=== PATIENT | female | born 1955 | race Caucasian/White ===

== ENCOUNTER 2017-03-30 15:28 | Observation (INO) | payer MEDICARE ==
[~2017-03-30] VITALS: Ht 157.5 cm; Wt 64.4 kg
[~2017-03-30 15:28] MED LIST: KLONOPIN0.5 MG PO; PAXIL20 MG PO
[2017-03-30 15:53] VITALS: BP 133/63
[2017-03-30] MEDS ORDERED: ONDANSETRON HCL INJ 2 MG/ML VIAL IV PRN (16:00)
[2017-03-30] MEDS ORDERED: SODIUM CHLORIDE 0.9% 1000ML 1,000 ML IV ONE (16:00)
[2017-03-30] MEDS ORDERED: METRONIDAZOLE 500MG/NS 100ML 100 ML IV SCH (18:00)
[2017-03-30 20:00] VITALS: BP 116/63
[2017-03-30] MEDS ORDERED: SODIUM CHLORIDE 0.9% 1000ML 1,000 ML ONE (20:16)
[2017-03-30] MEDS: METRONIDAZOLE 500MG/NS 100ML 100 ML IV SCH (20:32)
[2017-03-30] MEDS ORDERED: AMBIEN10 MG PO (20:34)
[2017-03-30] MEDS ORDERED: KLONOPIN1 MG PO (20:35)
[2017-03-30] MEDS ORDERED: PAXIL10 MG PO (20:40)
[2017-03-30] MEDS ORDERED: CLONAZEPAM 1 MG TAB PO PRN (20:45)
[2017-03-30] MEDS ORDERED: ZOLPIDEM TARTRATE 10 MG TAB PO SCH (21:00)
[2017-03-31] VITALS: BP 117/58
[2017-03-31] MEDS: METRONIDAZOLE 500MG/NS 100ML 100 ML IV SCH ×3 (03:04→16:33)
[2017-03-31 04:00] VITALS: BP 98/58
[2017-03-31 06:36] LABS: BASOPHILS # (AUTO) 0.1 (0.0-0.1); BASOPHILS % 0.8 % (0.0-1.0); EOSINOPHILS # (AUTO) 0.3 (0.0-0.4); EOSINOPHILS % 2.8 % (0.0-6.0); HEMATOCRIT 38.1 % (34.2-44.1); HEMOGLOBIN 13.5 g/dL (12.0-16.0); LYMPHOCYTES # (AUTO) 4.7 (1.0-3.2); LYMPHOCYTES % 43.9 % (18.0-39.1); MEAN CORPUSCULAR HEMOGLOBIN 33.3 pg (28-32); MEAN CORPUSCULAR HGB CONC 35.4 g/dL (31-35); MEAN CORPUSCULAR VOLUME 94.1 fL (81-99); MONOCYTES # (AUTO) 0.8 (0.2-0.8); MONOCYTES % 7.3 % (4.4-11.3); NEUTROPHILS # (AUTO) 4.8 (2.1-6.9); NEUTROPHILS % 44.8 % (38.7-80.0); PLATELET COUNT 248 x10e3/uL (140-360); RED BLOOD COUNT 4.05 x10e6/uL (3.6-5.1); RED CELL DISTRIBUTION WIDTH 14.3 % (11.7-14.4)
[2017-03-31 06:59] LABS: ANION GAP 13.2 mmol/L (8-16); BLOOD UREA NITROGEN 9 mg/dL (7-26); BUN/CREATININE RATIO 10 (6-25); CARBON DIOXIDE 24 mmol/L (22-29); CHLORIDE 106 mmol/L (98-107); CREATININE, SERUM 0.88 mg/dL (0.57-1.11); EST GLOMERULAR FILTRATION RATE > 60 ML/MIN (60-); GLUCOSE 110 mg/dL (74-118); POTASSIUM 3.2 mmol/L (3.5-5.1); SODIUM 140 mmol/L (136-145)
[2017-03-31] MEDS ORDERED: PANTOPRAZOLE SOD 40 MG TABEC PO SCH (07:30)
[2017-03-31 08:00] VITALS: BP 110/63
[2017-03-31 08:25] VITALS: BP 110/63
[2017-03-31] MEDS ORDERED: PAROXETINE HCL 20 MG TAB PO SCH ×2 (09:00)
[2017-03-31 10:55] LABS: BILIRUBIN,URINE NEGATIVE (NEGATIVE); KETONES,URINE NEGATIVE (NEGATIVE); LEUKOCYTE ESTERASE ,URINE 1+ (NEGATIVE); PROTEIN,URINE DIPSTICK NEGATIVE (NEGATIVE); URINE UROBILINOGEN 0.2 mg/dL (0.2 - 1)
[2017-03-31 10:56] LABS: NITRITE,URINE POSITIVE (NEGATIVE)
[2017-03-31 10:57] LABS: CLARITY,URINE CLOUDY (CLEAR); COLOR,URINE YELLOW (YELLOW)
--- NOTE | 2017-03-31 11:26 | History and Physical ---
A 62-year-old female comes in with gastroenteritis and dehydration. HISTORY OF PRESENT ILLNESS: This is Ms. Dianelys Aguilar who is a 62-year-old lady with a history of smoking and anxiety. Was in her usual state of health until about 1 month prior to admission. Patient started coughing and also had upper respiratory symptoms a day or 2 prior to admission. Every cough came with nausea. The patient started throwing up bilious product, and came into the office and saw her primary care physician. Was diagnosed with dehydration. The patient was sent over here for fluid resuscitation. PAST MEDICAL HISTORY: History of anxiety, history of insomnia and history of smoking as mentioned above. MEDICINES: She takes at home are: 1. Clonazepam 1 mg b.i.d. p.r.n. 2. Paroxetine 10 mg. 3. Zolpidem 10 mg. SURGICAL HISTORY: History of hysterectomy and appendectomy, and also bilateral knee surgery for trauma. SOCIAL HISTORY: Positive for smoking. She has been smoking for a long time. No ETOH. No IV drug abuse. FAMILY HISTORY: Noncontributory. REVIEW OF SYSTEMS: Negative for chest pain. Positive for shortness of breath. Positive for nausea and vomiting. No diarrhea. No constipation. No rectal bleeding, hematochezia. No hematemesis. No diplopia. No blurry vision. No headaches. No paresthesia. PHYSICAL EXAMINATION GENERAL: The patient is alert and oriented times 3 and in good spirits. Has been given 125 mL of fluid over the last 24 hours. VITALS: 98.1, pulse 79, respiratory rate 18, blood pressure 98/58. HEENT: Normocephalic and atraumatic. Pupils are reactive. NECK: No claudication. CV: S1 and S2 normal. Regular rate and rhythm. ABDOMEN: Nontender and nondistended. EXTREMITIES: No clubbing. No cyanosis. No edema. SKIN: Turgor is normal at this time, but on admission the patient had apparently had poor skin turgor. LABORATORY VALUES: Chemistry pending. White count is 10.61, hemoglobin is 13.5, hematocrit 38.1. No other labs were done. Will go ahead and order UA. Will go ahead and order also a chest x-ray. The patient is on Flagyl at this time. Also, start the patient on Protonix for intractable nausea. Continue the Zofran. Further recommendations per clinical course. Will continue to monitor the patient and awaiting lab work. Job#: [id number] RICKI
[2017-03-31 12:00] VITALS: BP 110/58
[2017-03-31 12:15] LABS: BACTERIA,URINE MODERATE /HPF; EPITHELIAL CELLS,URINE FEW /LPF
--- NOTE | 2017-03-31 13:56 | Diagnostic Imaging Report ---
PROCEDURE: X-RAY CHEST, TWO VIEWS COMPARISON: 01/02/2014. INDICATIONS: COUGH, VOMINTING FINDINGS: Lungs are well-inflated. No focal consolidation, pleural effusion, or pneumothorax. Stable cardiomediastinal contour. No pulmonary edema. No acute osseous abnormalities. Multiple healed right-sided rib fracture deformities, unchanged. Left sided breast implant. CONCLUSION: No acute cardiopulmonary abnormality. Dictated by: Fuad Norris M.D. on 03/31/2017 at 13:56 Electronically approved by: Fuad Norris M.D. on 03/31/2017 at 13:56
[2017-03-31] MEDS ORDERED: CIPRO500 MG PO (19:44)
[2017-03-31] MEDS ORDERED: PANTOPRAZOLE SO40 MG PO (19:45)
--- OUTSIDE RECORDS SUMMARY | 2017-04-28 15:54 | XMS REPORT ---
[facility] Address Unknown Phone Unavailable Care Team Providers Care Field Crop Grower Name Role Phone BONNIE ACEVEDO Unavailable Unavailable Problems This patient has no known problems. Allergies, Adverse Reactions, Alerts This patient has no known allergies or adverse reactions. Medications This patient has no known medications. Results Test Description Test Time Test Comments Text Results Atomic Results Result Comments CHEST 2 VIEWS [place] [address] Patient Name: PAUL NOGUERA MR #: [id number] : 1955 Age/Sex: 62/F Req # : [id number] Adm Physician: BONNIE ACEVEDO MD Ordered by: BONNIE ACEVEDO MD Report #: [id number] Location: [facility] Room/Bed: [facility] Procedure: [id number] DX/CHEST 2 VIEWS Exam Date: 03/31/17 Exam Time: 1330 REPORT STATUS: Signed PROCEDURE: X-RAY CHEST, TWO VIEWS COMPARISON: 01/02/2014. INDICATIONS: COUGH, VOMINTING FINDINGS: Lungs are well-inflated. No focal consolidation, pleural effusion, or pneumothorax. Stable cardiomediastinal contour. No pulmonary edema. No acute osseous abnormalities. Multiple healed right-sided rib fracture deformities, unchanged. Left sided breast implant. CONCLUSION: No acute cardiopulmonary abnormality. Dictated by: Valery Harris M.D. on 03/31/2017 at 13:56 Electronically approved by: Valery Harris M.D. on 03/31/2017 at 13:56 Dictated By: VALERY HARRIS MD [id number] Transcribed By: EFFIE on 03/31/17 7110 COPY TO: BONNIE ACEVEDO MD
--- OUTSIDE RECORDS SUMMARY | 2017-04-28 15:54 | XMS REPORT | Continuity of Care Document ---
Author Author [facility] Organization [facility] Address [address] [place] [address] Phone Unavailable Care Team Providers Care Book Sewing Machine Operator Name Role Phone BONNIE ACEVEDO MD PCP Insurance Providers Guarantor Dianelys Aguilar Address [address] [place] [address] Email NONE Payer [employer] Complete Policy Number [id number] Subscriber's Name Dianelys Aguilar Kim Relationship 18 Self / Same As Patient Group Number [id number] Effective Date 17 Advance Directives Directive Response Recorded Date/Time Does the patient have an advance directive? No 03/30/17 10:08pm If yes, is advance directive on file with [facility]? No 03/30/17 10:08pm If not on file with [facility] will patient provide a copy? No 03/30/17 10:08pm Do you have a Directive to Physician? No 03/30/17 3:23pm Do you have a Medical Power of Pea Viner Mechanic? No 03/30/17 3:23pm Do you have an out of hospital Do Not Resuscitate Order? No 03/30/17 3:23pm Do you have any special needs we should be aware of? No 03/30/17 3:23pm Do you have a support person here with you today? Yes 03/30/17 3:23pm Did patient receive Notice of Privacy Practices? Yes 03/30/17 3:23pm Did patient receive patient rights and responsibilities? Yes 03/30/17 3:23pm Problems No problem information available. Medications Current Home Medications Medication Dose Units Route Directions Days Qty Instructions Start Date Ciprofloxacin Hcl (Cipro) 500 Mg Tablet 500 Mg Oral Every 12 Hours 10 Tab Clonazepam (Klonopin) 1 Mg Tablet 1 Mg Oral Twice A Day as needed for Anxiety Pantoprazole Sodium (Protonix) 40 Mg Tablet.dr 40 Mg Oral Before Breakfast Paroxetine Hcl (Paxil) 10 Mg Tablet 10 Mg Oral Daily Zolpidem Tartrate (Ambien) 10 Mg Tablet 10 Mg Oral Bedtime 30 Tab Past Home Medications Medication Directions Ordered Status Clonazepam (Klonopin) 0.5 Mg Tablet, 0.5 Mg Oral Twice A Day Discontinued Paroxetine Hcl (Paxil) 20 Mg Tablet, 20 Mg Oral Daily Discontinued Social History Social History Problem Response Recorded Date/Time Onset Date Status Hx Eating Disorder No 03/30/2017 10:08pm Not Applicable Not Applicable Hx Substance Use Disorder No 03/30/2017 10:08pm Not Applicable Not Applicable Hx Depression Yes 03/30/2017 10:08pm Not Applicable Not Applicable Hx Alcohol Use Yes 03/30/2017 10:08pm Not Applicable Not Applicable Hx Substance Use Treatment No 03/30/2017 10:08pm Not Applicable Not Applicable Hx Physical Abuse No 03/30/2017 10:08pm Not Applicable Not Applicable Smoking Status Start Date Stop Date Current every day smoker Hospital Discharge Instructions No hospital discharge instruction information available. Plan of Care Discharge Date 03/31/17 8:09pm Disposition HOME, SELF-CARE Instructions/Education Provided Abdominal Pain - Adult Dehydration - Adult Quitting Smoking Prescriptions See Medication Section Referrals BONNIE ACEVEDO MD ([facility]) Entered Date: 03/31/2017 7:47pm Address: [address] [place] [address] [phone] Additional Instructions/Education call tomorrow to set up appointment with Dr. Acevedo in one week No smoking New med: cipro 500mg take one tablet by mouth twice a day for 5 days protonix 40mg take one tablet by mouth every morning 30 min before breakfast Functional Status Query Response Date Recorded Ambulation Ability Independent March 30, 2017 10:11pm Toileting Ability Independent March 30, 2017 10:11pm Allergies, Adverse Reactions, Alerts Allergen Type Severity Reaction Status Last Updated Penicillin Allergy Unknown Active 05/13/13 Sulfa (Sulfonamide Antibiotics) Allergy Unknown Active 03/30/17 STEROIDS Allergy Unknown Active 03/30/17 Immunizations No immunization information available. Vital Signs Acute Vital Signs Vital Response Date/Time Temperature (Fahrenheit) 97.9 degrees F (97.6 - 99.5) 03/31/2017 12:00pm Pulse Pulse Rate (adult) 84 bpm (60 - 90) 03/31/2017 12:00pm Respiratory Rate 20 bpm (12 - 24) 03/31/2017 12:00pm Blood Pressure 110/58 mm Hg 03/31/2017 12:00pm Height 5 ft 2 in 03/30/2017 10:08pm Weight 142 lb 03/30/2017 10:08pm Body Mass Index 26.0 kg/m^2 03/30/2017 10:08pm Results Laboratory Results Test Name Result Units Flags Reference Collection Date/Time Result Date/ Time Comments White Blood Count 10.61 x10e3/uL 4.8-10.8 03/31/2017 6:05am 03/31/2017 6:41am Red Blood Count 4.05 x10e6/uL 3.6-5.1 03/31/2017 6:05am 03/31/2017 6: 41am Hemoglobin 13.5 g/dL 12.0-16.0 03/31/2017 6:05am 03/31/2017 6:41am Hematocrit 38.1 % 34.2-44.1 03/31/2017 6:05am 03/31/2017 6:41am Mean Corpuscular Volume 94.1 fL 81-99 03/31/2017 6:05am 03/31/2017 6: 41am Mean Corpuscular Hemoglobin 33.3 pg H 28-32 03/31/2017 6:05am 2017 6:41am Mean Corpuscular Hemoglobin Concent 35.4 g/dL H 31-35 03/31/2017 6:05am 03/31/2017 6:41am Red Cell Distribution Width 14.3 % 11.7-14.4 03/31/2017 6:05am 2017 6:41am Platelet Count 248 x10e3/uL 140-360 03/31/2017 6:05am 03/31/2017 6: 41am Neutrophils (%) (Auto) 44.8 % 38.7-80.0 03/31/2017 6:05am 03/31/2017 6: 41am Lymphocytes (%) (Auto) 43.9 % H 18.0-39.1 03/31/2017 6:05am 03/31/2017 6 :41am Monocytes (%) (Auto) 7.3 % 4.4-11.3 03/31/2017 6:05am 03/31/2017 6: 41am Eosinophils (%) (Auto) 2.8 % 0.0-6.0 03/31/2017 6:05am 03/31/2017 6: 41am Basophils (%) (Auto) 0.8 % 0.0-1.0 03/31/2017 6:0503/31/2017 6:41am IM GRANULOCYTES % 0.4 % 0.0-1.0 03/31/2017 6:05am 03/31/2017 6:41am Neutrophils # (Auto) 4.8 2.1-6.9 03/31/2017 6:05am 03/31/2017 6:41am Lymphocytes # (Auto) 4.7 H 1.0-3.2 03/31/2017 6:05am 03/31/2017 6: 41am Monocytes # (Auto) 0.8 0.2-0.8 03/31/2017 6:05am 03/31/2017 6:41am Eosinophils # (Auto) 0.3 0.0-0.4 03/31/2017 6:05am 03/31/2017 6:41am Basophils # (Auto) 0.1 0.0-0.1 03/31/2017 6:0503/31/2017 6:41am Absolute Immature Granulocyte (auto 0.04 x10e3/uL 0-0.1 03/31/2017 6: 05am 03/31/2017 6:41am Urine Color YELLOW YELLOW 03/31/2017 10:20am 03/31/2017 10:57am Urine Clarity CLOUDY H CLEAR 03/31/2017 10:20am 03/31/2017 10:57am Urine Specific [place] 1.010 1.010-1.025 03/31/2017 10:20am 2017 10:57am Urine pH 5 5 - 7 03/31/2017 10:20am 03/31/2017 10:57am Urine Leukocyte Esterase 1+ H NEGATIVE 03/31/2017 10:20am 03/31/2017 10:57am Urine Nitrite POSITIVE H NEGATIVE 03/31/2017 10:20am 03/31/2017 10: 57am Urine Protein NEGATIVE NEGATIVE 03/31/2017 10:20am 03/31/2017 10: 57am Urine Glucose (UA) NEGATIVE NEGATIVE 03/31/2017 10:20am 03/31/2017 10 :57am Urine Ketones NEGATIVE NEGATIVE 03/31/2017 10:20am 03/31/2017 10: 57am Urine Urobilinogen 0.2 mg/dL 0.2 - 1 03/31/2017 10:20am 03/31/2017 10: 57am Urine Bilirubin NEGATIVE NEGATIVE 03/31/2017 10:03/31/2017 10: 57am Urine Blood 2+ H NEGATIVE 03/31/2017 10:20am 03/31/2017 10:57am Urine WBC 6-10 /HPF H 0-5 03/31/2017 10:20am 03/31/2017 12:15pm Urine RBC 6-10 /HPF H 0-5 03/31/2017 10:20am 03/31/2017 12:15pm Urine Bacteria MODERATE /HPF H NONE 03/31/2017 10:2003/31/2017 12: 15pm Urine Epithelial Cells FEW /LPF NONE 03/31/2017 10:2003/31/2017 12: 15pm Sodium Level 140 mmol/L 136-145 03/31/2017 6:05am 03/31/2017 7:02am Potassium Level 3.2 mmol/L L 3.5-5.1 03/31/2017 6:05am 03/31/2017 7: 02am Chloride Level 106 mmol/L 98-107 03/31/2017 6:05am 03/31/2017 7:02am Carbon Dioxide Level 24 mmol/L 22-29 03/31/2017 6:05am 03/31/2017 7: 02am Anion Gap 13.2 mmol/L 8-16 03/31/2017 6:05am 03/31/2017 7:02am Blood Urea Nitrogen 9 mg/dL 7-03/31/2017 6:05am 03/31/2017 7:02am Creatinine 0.88 mg/dL 0.57-1.11 03/31/2017 6:05am 03/31/2017 7:02am BUN/Creatinine Ratio 10 6-25 03/31/2017 6:05am 03/31/2017 7:02am Estimat Glomerular Filtration Rate > 60 ML/MIN 60- 03/31/2017 6:05am 7:02am Ranges were taken from the National Kidney Disease Education Program and the National Kid[employer] Foundation literature. Reference ranges: 60 or greater: Normal 16-59 (for 3 consecutive months): Chronic kidney disease 15 or less: Kidney failure Glucose Level 110 mg/dL 74-118 03/31/2017 6:05am 03/31/2017 7:02am Calcium Level 9.0 mg/dL 8.4-10.2 03/31/2017 6:05am 03/31/2017 7:02am Procedures Procedure Status Date Provider(s) X-ray of chest, two views Active 03/31/17 BONNIE ACEVEDO MD Encounters Encounter Location Arrival/Admit Date Discharge/Depart Date Attending Provider Discharged Inpatient [facility] 03/30/17 3:28pm 03/31/17 8:09pm BONNIE ACEVEDO MD
== END 2017-03-31 | disposition home or self-care (01) ==
LOC: MED/SURG3 15:28 → MED/SURG2 15:28 → UNDOADMIN 15:28 → MED/SURG3 15:38 → EDSTATUS 15:50 → UNDODISIN 03-31 20:09
PROVIDERS: ADMIT Family Medicine; ATTEND Family Medicine
DX: K52.9 Noninfective gastroenteritis and colitis, unspecified (principal); E86.0 Dehydration; F17.210 Nicotine dependence, cigarettes, uncomplicated; F41.9 Anxiety disorder, unspecified; G47.00 Insomnia, unspecified; R55 Syncope and collapse; Z88.0 Allergy status to penicillin; Z88.2 Allergy status to sulfonamides; Z88.8 Allergy status to other drugs, medicaments and biological substances
CPT/HCPCS: 36415; 71046; 80048; 81001; 85025; 87086; 87186; G0378; J2405; J7030

== ENCOUNTER 2017-08-13 09:30 | Emergency (ER) | payer MEDICARE ==
[~2017-08-13] VITALS: Ht 157.5 cm; Wt 72.6 kg
[~2017-08-13 09:30] MED LIST changes: +AMBIEN10 MG PO; +CIPRO500 MG PO; +KLONOPIN1 MG PO; +PANTOPRAZOLE SO40 MG PO; +PAXIL10 MG PO
[2017-08-13 10:37] LABS: BASOPHILS # (AUTO) 0.1 (0.0-0.1); EOSINOPHILS # (AUTO) 0.3 (0.0-0.4); EOSINOPHILS % 2.6 % (0.0-6.0); HEMATOCRIT 43.3 % (34.2-44.1); HEMOGLOBIN 15.5 g/dL (12.0-16.0); LYMPHOCYTES # (AUTO) 3.7 (1.0-3.2); LYMPHOCYTES % 32.1 % (18.0-39.1); MEAN CORPUSCULAR HEMOGLOBIN 33.5 pg (28-32); MEAN CORPUSCULAR HGB CONC 35.8 g/dL (31-35); MEAN CORPUSCULAR VOLUME 93.5 fL (81-99); MONOCYTES # (AUTO) 0.8 (0.2-0.8); NEUTROPHILS # (AUTO) 6.5 (2.1-6.9); NEUTROPHILS % 56.9 % (38.7-80.0); PLATELET COUNT 283 x10e3/uL (140-360); RED BLOOD COUNT 4.63 x10e6/uL (3.6-5.1); RED CELL DISTRIBUTION WIDTH 13.7 % (11.7-14.4)
[2017-08-13 10:44] LABS: AMPHETAMINES SCREEN,URINE NEGATIVE (NEGATIVE); BENZODIAZEPINES SCREEN,URINE NEGATIVE (NEGATIVE); PHENCYCLIDINE SCREEN,URINE NEGATIVE (NEGATIVE)
[2017-08-13 10:48] LABS: COLOR,URINE YELLOW (YELLOW)
[2017-08-13 10:50] LABS: BILIRUBIN,URINE NEGATIVE (NEGATIVE); KETONES,URINE NEGATIVE (NEGATIVE); LEUKOCYTE ESTERASE ,URINE 1+ (NEGATIVE); NITRITE,URINE POSITIVE (NEGATIVE); PROTEIN,URINE DIPSTICK NEGATIVE (NEGATIVE); URINE UROBILINOGEN 0.2 mg/dL (0.2 - 1)
[2017-08-13 10:51] LABS: CLARITY,URINE HAZY (CLEAR)
[2017-08-13 10:56] LABS: ALANINE AMINOTRANSFERASE 36 IU/L (0-55); ALBUMIN 3.7 g/dL (3.5-5.0); ALKALINE PHOSPHATASE 105 IU/L (40-150); ANION GAP 16.2 mmol/L (8-16); BLOOD UREA NITROGEN < 5 mg/dL (7-26); CALCIUM 10.1 mg/dL (8.4-10.2); CARBON DIOXIDE 24 mmol/L (22-29); CHLORIDE 104 mmol/L (98-107); CREATININE, SERUM 0.81 mg/dL (0.57-1.11); EST GLOMERULAR FILTRATION RATE > 60 ML/MIN (60-); GLUCOSE 143 mg/dL (74-118); POTASSIUM 3.2 mmol/L (3.5-5.1); SODIUM 141 mmol/L (136-145)
[2017-08-13 10:58] LABS: BACTERIA,URINE MODERATE /HPF; BUN/CREATININE RATIO 6 (6-25); EPITHELIAL CELLS,URINE RARE /LPF; TRANSITIONAL EPI CELLS,URINE FEW; WBC,URINE (MAN) 21-50 /HPF (0-5)
[2017-08-13 11:15] LABS: ACETAMINOPHEN < 3 ug/mL (10-30); SALICYLATE < 5.0 mg/dL (0-30)
[2017-08-13 11:18] LABS: THYROID STIMULATING HORMONE 0.864 uIU/mL (0.350-4.940)
[2017-08-13] MEDS ORDERED: CEFTRIAXONE SOD 1 GM VIAL IM ONE (12:00)
== END 2017-08-13 13:00 | disposition home or self-care (01) ==
LOC: ER 09:30
DX: G47.00 Insomnia, unspecified (principal); N30.91 Cystitis, unspecified with hematuria
CPT/HCPCS: 36415; 80053; 80307; 80329 ×2; 81001; 84443; 85025; 99284; J0696

== ENCOUNTER 2017-10-27 23:27 | Observation (INO) | payer MEDICARE ==
[~2017-10-27] VITALS: Ht 157.5 cm; Wt 88.9 kg
[2017-10-27 23:56] LABS: BASOPHILS # (AUTO) 0.1 (0.0-0.1); BASOPHILS % 0.8 % (0.0-1.0); EOSINOPHILS # (AUTO) 0.2 (0.0-0.4); EOSINOPHILS % 1.7 % (0.0-6.0); HEMATOCRIT 39.8 % (34.2-44.1); HEMOGLOBIN 13.8 g/dL (12.0-16.0); LYMPHOCYTES # (AUTO) 4.6 (1.0-3.2); LYMPHOCYTES % 49.4 % (18.0-39.1); MEAN CORPUSCULAR HEMOGLOBIN 33.7 pg (28-32); MEAN CORPUSCULAR HGB CONC 34.7 g/dL (31-35); MEAN CORPUSCULAR VOLUME 97.1 fL (81-99); MONOCYTES # (AUTO) 0.5 (0.2-0.8); MONOCYTES % 5.6 % (4.4-11.3); NEUTROPHILS # (AUTO) 3.9 (2.1-6.9); NEUTROPHILS % 42.3 % (38.7-80.0); PLATELET COUNT 230 x10e3/uL (140-360); RED CELL DISTRIBUTION WIDTH 14.2 % (11.7-14.4)
[2017-10-28] VITALS (9 sets, daily range): BP systolic 98–117; BP diastolic 52–69
[2017-10-28 00:04] LABS: AMPHETAMINES SCREEN,URINE NEGATIVE (NEGATIVE); CLARITY,URINE CLEAR (CLEAR); COLOR,URINE YELLOW (YELLOW); KETONES,URINE NEGATIVE (NEGATIVE); LEUKOCYTE ESTERASE ,URINE NEGATIVE (NEGATIVE); NITRITE,URINE NEGATIVE (NEGATIVE); PHENCYCLIDINE SCREEN,URINE NEGATIVE (NEGATIVE); PROTEIN,URINE DIPSTICK NEGATIVE (NEGATIVE)
[2017-10-28 00:05] LABS: BENZODIAZEPINES SCREEN,URINE NEGATIVE (NEGATIVE)
[2017-10-28 00:06] LABS: BILIRUBIN,URINE NEGATIVE (NEGATIVE); URINE UROBILINOGEN 0.2 mg/dL (0.2 - 1)
[2017-10-28 00:13] LABS: BACTERIA,URINE FEW /HPF; EPITHELIAL CELLS,URINE FEW /LPF
[2017-10-28] MEDS ORDERED: HYDROXYZINE HCL25 MG PO (00:17)
--- NOTE | 2017-10-28 00:17 | Diagnostic Imaging Report ---
EXAMINATION: Head CT HISTORY: Dizziness and weakness for one day COMPARISON: None. TECHNIQUE: Multidetector axial images were obtained without contrast from the foramen magnum to the vertex . The images were reconstructed using brain and bone algorithms. Thin section brain images were reformatted into coronal and sagittal planes. Intravenous contrast: None. Image quality: Motion/streaking artifact limits the evaluation of the skull base and posterior cranial fossa. Dose modulation, iterative reconstruction, and/or weight based adjustment of the mA/kV was utilized to reduce the radiation dose to as low as reasonably achievable. FINDINGS: Parenchyma: 1. Cortical subcortical encephalomalacia in the left inferomedial occipital lobe (lingual gyrus) likely the sequela from remote infarct in the left NURSE SITTER distribution. 2. Few foci of hypodensity like for example in the left thalamocapsular region and anterior limb of the internal capsule most likely corresponds to nonspecific chronic microvascular ischemic changes versus age indeterminate small chronic lacunar infarct. 3. No mass or hemorrhage. No CT evidence of acute territorial vascular insult. Extra-axial spaces:No abnormal density. No extra-axial fluid collections Brain volume: Normal for age. Ventricles: No hydrocephalus or displacement. Arteries: No density suggestive of thrombus. Dural sinuses: No abnormal density. Extra-axial spaces: No abnormal density. Foramen magnum: No mass, Chiari malformation, or basilar invagination. Sella: No obvious mass. Paranasal/mastoid sinuses: Imaged portions unremarkable. Skull/Scalp: No lytic or blastic lesions. No fractures. IMPRESSION: 1. No acute intracranial hemorrhage or cortical infarct. 2. Mild chronic microvascular ischemic changes. 3. Chronic left occipital infarct. Signed by: Dr. Keiko Tim M.D. on 10/28/2017 12:14 AM
[2017-10-28] MEDS ORDERED: AMBIEN10 MG PO (00:18)
[2017-10-28] MEDS ORDERED: TRAZODONE HCL50 MG PO (00:18)
[2017-10-28] MEDS ORDERED: NORCO 10-325 T1 EACH PO (00:19)
[2017-10-28 00:42] LABS: ALANINE AMINOTRANSFERASE 24 IU/L (0-55); ALBUMIN 3.9 g/dL (3.5-5.0); ALBUMIN/GLOBULIN RATIO 1.1 (0.8-2.0); ALKALINE PHOSPHATASE 86 IU/L (40-150); ANION GAP 14.9 mmol/L (8-16); BLOOD UREA NITROGEN 5 mg/dL (7-26); BUN/CREATININE RATIO 6 (6-25); CALCIUM 9.6 mg/dL (8.4-10.2); CARBON DIOXIDE 22 mmol/L (22-29); CHLORIDE 106 mmol/L (98-107); CREATINE KINASE 91 IU/L (29-168); CREATININE, SERUM 0.82 mg/dL (0.57-1.11); EST GLOMERULAR FILTRATION RATE > 60 ML/MIN (60-); GLUCOSE 96 mg/dL (74-118); POTASSIUM 4.9 mmol/L (3.5-5.1); SODIUM 138 mmol/L (136-145)
--- NOTE | 2017-10-28 01:01 | Diagnostic Imaging Report ---
EXAMINATION: CHEST SINGLE (PORTABLE) INDICATION: Weakness. COMPARISON: 03/31/2017 FINDINGS: TUBES and LINES: None. LUNGS: Lungs are well inflated. Lungs are clear. There is no evidence of pneumonia or pulmonary edema. PLEURA: No pleural effusion or pneumothorax. HEART AND MEDIASTINUM: The cardiomediastinal silhouette is unremarkable. BONES AND SOFT TISSUES: No acute osseous lesion. Soft tissues are remarkable for left-sided breast implant. UPPER ABDOMEN: No free air under the diaphragm. IMPRESSION: No acute thoracic abnormality. Signed by: Dr. Abhilash Shankar M.D. on 10/28/2017 12:57 AM
[2017-10-28] MEDS ORDERED: ASPIRIN 81 MG CHEW TAB PO ONE (01:15)
[2017-10-28] MEDS ORDERED: ONDANSETRON HCL INJ 2 MG/ML VIAL IV PRN (01:15)
[2017-10-28] MEDS: HYDROXYZINE HCL 25 MG TAB PO SCH ×3 (05:10→21:09)
[2017-10-28 05:33] LABS: CREATINE KINASE 73 IU/L (29-168)
--- NOTE | 2017-10-28 07:01 | History and Physical ---
The patient comes in with dizziness and weakness. HISTORY OF PRESENT ILLNESS: This is Ms. Dianelys Aguilar with a history of chronic insomnia was in her usual state of health. The patient came in with dizziness and weakness. The patient had taken trazodone, Ambien and also hydroxyzine. The patient had dizziness. The patient reports has been taking extra pills because she is having trouble to sleep. PAST MEDICAL HISTORY: History of chronic anxiety, history of depression, history of high cholesterol, history of chronic pain, history of neuropathy. The patient also has a history of COPD. SURGICAL HISTORY: History of cervical laminectomy and multiple surgeries. The patient was recently asked to have a sleep study, and has not done so. REVIEW OF SYSTEMS: No chest pain. No shortness of breath. No nausea, vomiting or diarrhea. No constipation or rectal bleeding, hematochezia, or hematemesis. Positive for dizziness. No blurry vision or diplopia either. SOCIAL HISTORY: The patient does smoke. No ETOH. No IV drug abuse. FAMILY HISTORY: History of coronary artery disease and hypertension. PHYSICAL EXAMINATION GENERAL: The patient is alert and oriented times 3 at this time. Can be aroused. Lethargic. VITALS: Temperature is 97.1, pulse 82, blood pressure 119/69, respirations 18, SpO2 of 94. HEENT: Normocephalic. Pupils equal, round and reactive. No nystagmus present. Pupillary exam is reactive to light. ENT: Normal examination. Dry mucous membranes. Positive for some excoriations on the inner lip. NECK: Normal examination. CV: S1 and S2 normal. Regular rate and rhythm. RESPIRATORY: Clear to auscultation bilaterally. Decreased air entry. ABDOMEN: Soft and nontender. EXTREMITIES: Tender in the lower extremities. No clubbing. No cyanosis. Trace edema. SKIN: Warm. NEUROLOGIC: Alert and oriented times 3. Mild dysarthria from the medications. EKG is normal sinus rhythm with a rate of 77. PV normal. QRS complex is normal. Chest x-ray with no acute disease. CT of the brain shows no acute intracranial hemorrhage or infarct. Mild chronic intravascular changes and chronic left occipital infarct. LABS: Shows a white count of 9.24, hemoglobin 13, hematocrit 39.8. Chemistry shows sodium of 138, potassium 4.9, AST of 38. Troponins are less than 0.01 times 2. AST was slightly low at 38. Urine did show rbcs and wbcs. Toxicology positive for opiates and negative for cannabinoids. ASSESSMENT 1. Acute dizziness. 2. Possible chronic overdose of medications. 3. History of cerebrovascular accident in the past. 4. Hypertension. 5. Chronic obstructive pulmonary disease. 6. Nicotine dependence. PLAN 1. The patient has been counseled on nicotine dependence and also on medication overuse. 2. We are going to do an MRI since we have chronic finding of stroke. We are going to get MRA of the brain. Start on IV fluids of half liter. Further recommendations per clinical course. Will continue monitoring the patient. Will keep her off her home medications at this time until she is more coherent. Job#: [id number] RICKI
[2017-10-28] MEDS: SODIUM CHLORIDE 0.9% 1000ML 1,000 ML IV SCH ×3 (07:10→21:09)
[2017-10-28] MEDS: HYDROCODONE/APAP 10MG-325MG TAB PO PRN (09:18)
[2017-10-28 14:31] LABS: CREATINE KINASE 63 IU/L (29-168)
[2017-10-29] VITALS: BP 102/54
[2017-10-29 05:00] VITALS: BP 105/58
[2017-10-29] MEDS: HYDROXYZINE HCL 25 MG TAB PO SCH ×2 (05:06→15:09)
[2017-10-29 05:11] LABS: BASOPHILS # (AUTO) 0.1 (0.0-0.1); BASOPHILS % 0.7 % (0.0-1.0); EOSINOPHILS # (AUTO) 0.2 (0.0-0.4); EOSINOPHILS % 2.4 % (0.0-6.0); HEMATOCRIT 32.6 % (34.2-44.1); HEMOGLOBIN 11.5 g/dL (12.0-16.0); LYMPHOCYTES # (AUTO) 3.9 (1.0-3.2); LYMPHOCYTES % 48.3 % (18.0-39.1); MEAN CORPUSCULAR HEMOGLOBIN 33.8 pg (28-32); MEAN CORPUSCULAR HGB CONC 35.3 g/dL (31-35); MEAN CORPUSCULAR VOLUME 95.9 fL (81-99); MONOCYTES # (AUTO) 0.4 (0.2-0.8); MONOCYTES % 5.2 % (4.4-11.3); NEUTROPHILS # (AUTO) 3.5 (2.1-6.9); NEUTROPHILS % 43.3 % (38.7-80.0); PLATELET COUNT 204 x10e3/uL (140-360); RED CELL DISTRIBUTION WIDTH 14.4 % (11.7-14.4)
[2017-10-29 05:31] LABS: ALANINE AMINOTRANSFERASE 22 IU/L (0-55); ALBUMIN 3.1 g/dL (3.5-5.0); ALBUMIN/GLOBULIN RATIO 1.4 (0.8-2.0); ALKALINE PHOSPHATASE 77 IU/L (40-150); ANION GAP 11.5 mmol/L (8-16); BLOOD UREA NITROGEN 6 mg/dL (7-26); BUN/CREATININE RATIO 8 (6-25); CALCIUM 8.4 mg/dL (8.4-10.2); CARBON DIOXIDE 23 mmol/L (22-29); CHLORIDE 113 mmol/L (98-107); CREATININE, SERUM 0.72 mg/dL (0.57-1.11); EST GLOMERULAR FILTRATION RATE > 60 ML/MIN (60-); GLUCOSE 90 mg/dL (74-118); POTASSIUM 3.5 mmol/L (3.5-5.1); SODIUM 144 mmol/L (136-145)
[2017-10-29 07:48] VITALS: BP 118/54
[2017-10-29 07:57] VITALS: BP 118/54
--- NOTE | 2017-10-29 08:41 | Diagnostic Imaging Report ---
Exam: Brain MRI without IV contrast History: Dizziness Comparison studies: Head CT 10/27/2017 Technique: Brain: Sagittal and axial T2 FS, axial DWI, axial T2*GRE, axial T1 FLAIR and axial coronal T2 FLAIR. Cervical MRA: Axial 2-D [id number] with 3-D MIP reformats. Intracranial MRA: Axial 3-D [id number] with coronal, sagittal and 3-D MIP reformats. Intravenous contrast: None Findings: Exams are limited by artifacts related to patient motion. In spite of this limitation: Brain MRI: Scalp: Normal in signal. No masses. Bone marrow: Normal in signal intensity. Brain sulci: Appropriate for age. Ventricles: Normal in size. No hydrocephalus. Extra axial spaces: No mass, no fluid collection. Parenchyma: No mass, hemorrhage or acute ischemia. Chronic cortical/subcortical insult in the left occipital lobe along the lingual gyrus in the right RELIEF MASTER territory. A few small T2 FLAIR hyperintense foci in the supratentorial white matter are nonspecific but most compatible with chronic small vessel ischemic changes. Linear T1 hypointensity/T2 hyperintensity in the left thalamus may represent chronic lacunar infarct. Additional small chronic lacunar infarcts in the left cerebellum. Suprasellar region: No abnormalities. Craniocervical junction: Patent foramen magnum. No Chiari malformation. Vessels: Normal flow-voids in the arteries and sinuses. Incidental findings: Small right maxillary sinus retention cyst. Mild canal stenosis at C3-C4 due to disc ossify complex and thickened ligamentum flavum. Disc osteophyte complex at C4-C5 indents the thecal sac without significant canal stenosis. Cervical MRA: If present, stenosis is calculated utilizing the NASCET method which calculates the degree of stenosis with reference to the normal lumen of the carotid artery distal to the stenosis. Aortic arch and great vessels: No gross flow abnormalities is suboptimally evaluated due to motion artifacts. Common carotid arteries: Patent, no gross abnormalities bilaterally. Carotid bulbs: No (0%) stenosis bilaterally. Internal carotid arteries: Patent, no flow abnormalities. Vertebral arteries: Cannot adequate evaluate the origins due to motion artifacts otherwise patent with antegrade flow bilaterally. Intracranial MRA: Anterior circulation: Internal carotid arteries: Patent, no flow abnormalities. Middle cerebral arteries: Patent, no flow abnormalities in the M1 and proximal M2 segments. Anterior cerebral arteries: Patent, no flow abnormalities in the A1 segments. Posterior circulation: Vertebral arteries: Patent, no abnormalities in the dominant left vertebral artery. The intradural right vertebral artery is hypoplastic and essentially terminates as a PICA branch. Basilar artery: Patent, no gross flow abnormalities. Posterior cerebral arteries: Patent, no flow abnormalities. Incidental prominent posterior right communicating artery. Anatomical variants: Acom: Patent. Pcoms: Patent bilaterally. Vertebral arteries: Left is dominant. Right vertebral artery terminates as a PICA branch. IMPRESSION: Exams are limited by artifacts related to patient motion. In spite of this limitation: Brain: 1. No acute ischemia or other acute intracranial abnormalities. 2. Chronic left inferior occipital vascular insult (RELIEF MASTER territory). 3. Mild chronic microvascular ischemic changes. 4. Small chronic lacunar infarcts in the left cerebellum and left thalamus. Cervical MRA: 1. Patent carotid and vertebral arteries. 2. No (0%) stenosis at the cervical carotid bulbs. Intracranial MRA: 1. No major branch occlusion or hemodynamically significant stenosis. 2. 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 Signed by: Dr. Fuad Wu M.D. on 10/29/2017 8:37 AM
--- NOTE | 2017-10-29 08:41 | Diagnostic Imaging Report ---
Exam: Brain MRI without IV contrast History: Dizziness Comparison studies: Head CT 10/27/2017 Technique: Brain: Sagittal and axial T2 FS, axial DWI, axial T2*GRE, axial T1 FLAIR and axial coronal T2 FLAIR. Cervical MRA: Axial 2-D [id number] with 3-D MIP reformats. Intracranial MRA: Axial 3-D [id number] with coronal, sagittal and 3-D MIP reformats. Intravenous contrast: None Findings: Exams are limited by artifacts related to patient motion. In spite of this limitation: Brain MRI: Scalp: Normal in signal. No masses. Bone marrow: Normal in signal intensity. Brain sulci: Appropriate for age. Ventricles: Normal in size. No hydrocephalus. Extra axial spaces: No mass, no fluid collection. Parenchyma: No mass, hemorrhage or acute ischemia. Chronic cortical/subcortical insult in the left occipital lobe along the lingual gyrus in the right DISTRICT RECRUITER territory. A few small T2 FLAIR hyperintense foci in the supratentorial white matter are nonspecific but most compatible with chronic small vessel ischemic changes. Linear T1 hypointensity/T2 hyperintensity in the left thalamus may represent chronic lacunar infarct. Additional small chronic lacunar infarcts in the left cerebellum. Suprasellar region: No abnormalities. Craniocervical junction: Patent foramen magnum. No Chiari malformation. Vessels: Normal flow-voids in the arteries and sinuses. Incidental findings: Small right maxillary sinus retention cyst. Mild canal stenosis at C3-C4 due to disc ossify complex and thickened ligamentum flavum. Disc osteophyte complex at C4-C5 indents the thecal sac without significant canal stenosis. Cervical MRA: If present, stenosis is calculated utilizing the NASCET method which calculates the degree of stenosis with reference to the normal lumen of the carotid artery distal to the stenosis. Aortic arch and great vessels: No gross flow abnormalities is suboptimally evaluated due to motion artifacts. Common carotid arteries: Patent, no gross abnormalities bilaterally. Carotid bulbs: No (0%) stenosis bilaterally. Internal carotid arteries: Patent, no flow abnormalities. Vertebral arteries: Cannot adequate evaluate the origins due to motion artifacts otherwise patent with antegrade flow bilaterally. Intracranial MRA: Anterior circulation: Internal carotid arteries: Patent, no flow abnormalities. Middle cerebral arteries: Patent, no flow abnormalities in the M1 and proximal M2 segments. Anterior cerebral arteries: Patent, no flow abnormalities in the A1 segments. Posterior circulation: Vertebral arteries: Patent, no abnormalities in the dominant left vertebral artery. The intradural right vertebral artery is hypoplastic and essentially terminates as a PICA branch. Basilar artery: Patent, no gross flow abnormalities. Posterior cerebral arteries: Patent, no flow abnormalities. Incidental prominent posterior right communicating artery. Anatomical variants: Acom: Patent. Pcoms: Patent bilaterally. Vertebral arteries: Left is dominant. Right vertebral artery terminates as a PICA branch. IMPRESSION: Exams are limited by artifacts related to patient motion. In spite of this limitation: Brain: 1. No acute ischemia or other acute intracranial abnormalities. 2. Chronic left inferior occipital vascular insult (DISTRICT RECRUITER territory). 3. Mild chronic microvascular ischemic changes. 4. Small chronic lacunar infarcts in the left cerebellum and left thalamus. Cervical MRA: 1. Patent carotid and vertebral arteries. 2. No (0%) stenosis at the cervical carotid bulbs. Intracranial MRA: 1. No major branch occlusion or hemodynamically significant stenosis. 2. 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 Signed by: Dr. Fuad Wu M.D. on 10/29/2017 8:37 AM
--- NOTE | 2017-10-29 08:41 | Diagnostic Imaging Report ---
Exam: Brain MRI without IV contrast History: Dizziness Comparison studies: Head CT 10/27/2017 Technique: Brain: Sagittal and axial T2 FS, axial DWI, axial T2*GRE, axial T1 FLAIR and axial coronal T2 FLAIR. Cervical MRA: Axial 2-D [id number] with 3-D MIP reformats. Intracranial MRA: Axial 3-D [id number] with coronal, sagittal and 3-D MIP reformats. Intravenous contrast: None Findings: Exams are limited by artifacts related to patient motion. In spite of this limitation: Brain MRI: Scalp: Normal in signal. No masses. Bone marrow: Normal in signal intensity. Brain sulci: Appropriate for age. Ventricles: Normal in size. No hydrocephalus. Extra axial spaces: No mass, no fluid collection. Parenchyma: No mass, hemorrhage or acute ischemia. Chronic cortical/subcortical insult in the left occipital lobe along the lingual gyrus in the right SENIOR TELLER territory. A few small T2 FLAIR hyperintense foci in the supratentorial white matter are nonspecific but most compatible with chronic small vessel ischemic changes. Linear T1 hypointensity/T2 hyperintensity in the left thalamus may represent chronic lacunar infarct. Additional small chronic lacunar infarcts in the left cerebellum. Suprasellar region: No abnormalities. Craniocervical junction: Patent foramen magnum. No Chiari malformation. Vessels: Normal flow-voids in the arteries and sinuses. Incidental findings: Small right maxillary sinus retention cyst. Mild canal stenosis at C3-C4 due to disc ossify complex and thickened ligamentum flavum. Disc osteophyte complex at C4-C5 indents the thecal sac without significant canal stenosis. Cervical MRA: If present, stenosis is calculated utilizing the NASCET method which calculates the degree of stenosis with reference to the normal lumen of the carotid artery distal to the stenosis. Aortic arch and great vessels: No gross flow abnormalities is suboptimally evaluated due to motion artifacts. Common carotid arteries: Patent, no gross abnormalities bilaterally. Carotid bulbs: No (0%) stenosis bilaterally. Internal carotid arteries: Patent, no flow abnormalities. Vertebral arteries: Cannot adequate evaluate the origins due to motion artifacts otherwise patent with antegrade flow bilaterally. Intracranial MRA: Anterior circulation: Internal carotid arteries: Patent, no flow abnormalities. Middle cerebral arteries: Patent, no flow abnormalities in the M1 and proximal M2 segments. Anterior cerebral arteries: Patent, no flow abnormalities in the A1 segments. Posterior circulation: Vertebral arteries: Patent, no abnormalities in the dominant left vertebral artery. The intradural right vertebral artery is hypoplastic and essentially terminates as a PICA branch. Basilar artery: Patent, no gross flow abnormalities. Posterior cerebral arteries: Patent, no flow abnormalities. Incidental prominent posterior right communicating artery. Anatomical variants: Acom: Patent. Pcoms: Patent bilaterally. Vertebral arteries: Left is dominant. Right vertebral artery terminates as a PICA branch. IMPRESSION: Exams are limited by artifacts related to patient motion. In spite of this limitation: Brain: 1. No acute ischemia or other acute intracranial abnormalities. 2. Chronic left inferior occipital vascular insult (SENIOR TELLER territory). 3. Mild chronic microvascular ischemic changes. 4. Small chronic lacunar infarcts in the left cerebellum and left thalamus. Cervical MRA: 1. Patent carotid and vertebral arteries. 2. No (0%) stenosis at the cervical carotid bulbs. Intracranial MRA: 1. No major branch occlusion or hemodynamically significant stenosis. 2. 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 Signed by: Dr. Fuad Wu M.D. on 10/29/2017 8:37 AM
[2017-10-29] MEDS: HYDROCODONE/APAP 10MG-325MG TAB PO PRN (09:14)
[2017-10-29 12:32] VITALS: BP 100/56
[2017-10-29] MEDS ORDERED: PRAVASTATIN SOD20 MG (14:50)
[2017-10-29] MEDS ORDERED: SIMVASTATIN 20 MG TAB PO SCH (21:00)
== END 2017-10-29 15:30 | disposition home or self-care (01) ==
LOC: ER 23:27 → ERHOLD 10-28 01:21 → IMCU 10-28 01:40
PROVIDERS: ADMIT Family Medicine; ATTEND Family Medicine
DX: T42.6X1A Poisoning by other antiepileptic and sedative-hypnotic drugs, accidental (unintentional), initial encounter (principal); Y92.019 Unspecified place in single-family (private) house as the place of occurrence of the external cause; Z82.49 Family history of ischemic heart disease and other diseases of the circulatory system; F51.04 Psychophysiologic insomnia; F41.8 Other specified anxiety disorders; F17.210 Nicotine dependence, cigarettes, uncomplicated; Z86.73 Personal history of transient ischemic attack (TIA), and cerebral infarction without residual deficits; I10 Essential (primary) hypertension; J44.9 Chronic obstructive pulmonary disease, unspecified
CPT/HCPCS: 36415 ×3; 70450; 70544; 70547; 70551; 71045; 80053 ×2; 80307; 81001; 82550 ×2; 82553 ×2; 84484 ×2; 85025 ×2; 93005; 97161; 99284; G0378 ×2; G8978; G8979; G8980; J3410 ×2; J7030 ×2

== ENCOUNTER 2017-11-01 05:05 | Observation (INO) | payer MEDICARE ==
[~2017-11-01] VITALS: Ht 157.5 cm; Wt 69.4 kg
[~2017-11-01 05:05] MED LIST changes: +HYDROXYZINE HCL25 MG PO; +NORCO 10-325 T1 EACH PO; +PRAVASTATIN SOD20 MG; +TRAZODONE HCL50 MG PO
[2017-11-01] MEDS ORDERED: KETOROLAC TROMETHAMINE 30 MG/ML VIAL IV STA (05:15)
[2017-11-01 05:45] LABS: INR 1.02; PROTHROMBIN TIME 12.6 seconds (11.9-14.5)
[2017-11-01 05:46] LABS: PARTIAL THROMBOPLASTIN TIME 28.1 seconds (23.8-35.5)
[2017-11-01 05:50] LABS: BASOPHILS # (AUTO) 0.1 (0.0-0.1); BASOPHILS % 0.8 % (0.0-1.0); EOSINOPHILS # (AUTO) 0.2 (0.0-0.4); EOSINOPHILS % 1.9 % (0.0-6.0); HEMATOCRIT 48.9 % (34.2-44.1); HEMOGLOBIN 17.4 g/dL (12.0-16.0); LYMPHOCYTES # (AUTO) 6.2 (1.0-3.2); LYMPHOCYTES % 56.8 % (18.0-39.1); MEAN CORPUSCULAR HEMOGLOBIN 33.9 pg (28-32); MEAN CORPUSCULAR HGB CONC 35.6 g/dL (31-35); MEAN CORPUSCULAR VOLUME 95.3 fL (81-99); MONOCYTES # (AUTO) 0.5 (0.2-0.8); MONOCYTES % 4.4 % (4.4-11.3); NEUTROPHILS # (AUTO) 3.9 (2.1-6.9); NEUTROPHILS % 35.8 % (38.7-80.0); PLATELET COUNT 296 x10e3/uL (140-360); RED BLOOD COUNT 5.13 x10e6/uL (3.6-5.1); RED CELL DISTRIBUTION WIDTH 14.1 % (11.7-14.4)
[2017-11-01 05:57] LABS: ALANINE AMINOTRANSFERASE 38 IU/L (0-55); ALBUMIN 4.5 g/dL (3.5-5.0); ALBUMIN/GLOBULIN RATIO 1.3 (0.8-2.0); ALKALINE PHOSPHATASE 102 IU/L (40-150); ANION GAP 18.6 mmol/L (8-16); BLOOD UREA NITROGEN 6 mg/dL (7-26); BUN/CREATININE RATIO 7 (6-25); CALCIUM 10.3 mg/dL (8.4-10.2); CARBON DIOXIDE 21 mmol/L (22-29); CHLORIDE 105 mmol/L (98-107); CREATINE KINASE 60 IU/L (29-168); CREATININE, SERUM 0.85 mg/dL (0.57-1.11); EST GLOMERULAR FILTRATION RATE > 60 ML/MIN (60-); GLUCOSE 122 mg/dL (74-118); POTASSIUM 3.6 mmol/L (3.5-5.1); SODIUM 141 mmol/L (136-145)
[2017-11-01 06:07] LABS: BILIRUBIN,URINE NEGATIVE (NEGATIVE); CLARITY,URINE CLOUDY (CLEAR); COLOR,URINE YELLOW (YELLOW); KETONES,URINE 1+ (NEGATIVE); LEUKOCYTE ESTERASE ,URINE 1+ (NEGATIVE); NITRITE,URINE POSITIVE (NEGATIVE); PROTEIN,URINE DIPSTICK NEGATIVE (NEGATIVE); URINE UROBILINOGEN 0.2 mg/dL (0.2 - 1)
[2017-11-01 06:13] LABS: EPITHELIAL CELLS,URINE MODERATE /LPF
[2017-11-01 06:14] LABS: BACTERIA,URINE MANY /HPF; RBC,URINE 0-5 /HPF (0-5); WBC,URINE (MAN) 21-50 /HPF (0-5)
[2017-11-01 06:15] LABS: TRANSITIONAL EPI CELLS,URINE FEW
--- NOTE | 2017-11-01 06:54 | Diagnostic Imaging Report ---
EXAMINATION: CHEST 2 VIEWS INDICATION: Chest pain COMPARISON: None FINDINGS: TUBES and LINES: None. LUNGS: Lungs are well inflated. Lungs are clear. There is no evidence of pneumonia or pulmonary edema. PLEURA: No pleural effusion or pneumothorax. HEART AND MEDIASTINUM: The cardiomediastinal silhouette is unremarkable. BONES AND SOFT TISSUES: There is a expansile lucent lesion in the right second rib and multiple old rib fractures on the right upper chest. Bilateral breast implants are barely visualized on the lateral view UPPER ABDOMEN: No free air under the diaphragm. IMPRESSION: 1. No acute thoracic abnormality. 2. Multiple right-sided rib fractures. 3. Lucent lesion at second rib is most likely posttraumatic. If focal pain in the right hemithorax exists, follow-up with CT of the chest is recommended Signed by: Dr. Abhilash Shankar M.D. on 11/01/2017 6:50 AM
[2017-11-01] MEDS ORDERED: IPRATROPIUM BROMIDE 0.02% 2.5 ML NEB NEB PRN (07:15)
[2017-11-01] MEDS ORDERED: ALBUTEROL SULF 0.083% NEB SOLN 3 ML NEB NEB PRN (07:15)
[2017-11-01] MEDS ORDERED: ONDANSETRON HCL INJ 2 MG/ML VIAL IV PRN (07:15)
[2017-11-01] MEDS ORDERED: ACETAMINOPHEN 325 MG TAB PO PRN (07:15)
[2017-11-01] MEDS: CEFTRIAXONE SOD 1 GM VIAL IV SCH (07:27)
[2017-11-01 07:46] LABS: EOSINOPHILS % (MANUAL) 1 % (0-7); LYMPHOCYTES % (MANUAL) 24 % (19-48); MONOCYTES % (MANUAL) 3 % (3.4-9.0); NEUTROPHILS % (MANUAL) 72 % (40-74)
[2017-11-01 07:48] LABS: ANISOCYTOSIS SLIGHT; HYPOCHROMASIA SLIGHT; PLATELET ESTIMATE ADEQUATE; PLATELET MORPHOLOGY COMMENT NORMAL; RBC MORPHOLOGY COMMENT NORMAL
[2017-11-01 11:21] VITALS: BP 135/63
[2017-11-01] MEDS: ASPIRIN 81 MG ENTERIC COATED PO SCH (11:21)
[2017-11-01] MEDS: FAMOTIDINE 20 MG/2 ML VIAL IV SCH ×2 (11:21→21:23)
[2017-11-01 11:23] VITALS: BP 135/63
[2017-11-01 11:26] VITALS: BP 135/63
[2017-11-01 15:13] VITALS: BP 125/67
[2017-11-01 16:04] LABS: CREATINE KINASE 52 IU/L (29-168)
[2017-11-01] MEDS ORDERED: ZOLPIDEM TARTRATE 10 MG TAB PO PRN (18:45)
[2017-11-01] MEDS ORDERED: HYDROCODONE/APAP 10MG-325MG TAB PO PRN ×2 (18:45→19:15)
--- NOTE | 2017-11-01 19:18 | History and Physical ---
This is a 62-year-old female with a history of hypertension, history of COPD, history of depression, CVA in the past and neuropathy. She comes in with chest pain. HISTORY OF PRESENT ILLNESS: Dianelys is a 62-year-old lady with history of waking up in the morning at 4 o'clock with symptoms of chest pain. Onset was during sleep and described as tightness and pain with diaphoresis and radiating to the back. No arm radiation, but did feel some tingling in the arm. The patient came to the emergency room and was admitted for chest pain, rule out acute coronary syndrome. PAST MEDICAL HISTORY 1. History of COPD. 2. History of CVA. 3. History of anxiety. 4. History of depression. 5. History of HLD. 6. Chronic pain. 7. History of neuropathy. 8. History of insomnia. MEDICATIONS: She takes at home: 1. Hydrocodone. 2. Hydroxyzine. 3. Pravastatin 20 mg. 4. Trazodone. 5. Zolpidem 10 mg at nighttime. SURGICAL HISTORY: Includes hysterectomy, tonsillectomy, and bilateral lower extremities with multiple orthopedic surgeries. FAMILY HISTORY: Positive for diabetes mellitus and cardiac disorder in her mother, too. REVIEW OF SYSTEMS: Positive for chest pain. Positive for shortness of breath. No nausea, vomiting, diarrhea. No constipation. No rectal bleeding. No hematochezia or hematemesis. No blurry vision. No joint pains. No bloody stools. No black stools. No diplopia. No blurry vision. PHYSICAL EXAMINATION GENERAL: Alert and oriented times 3. HEENT: Normocephalic and atraumatic. The pupils react to light and accommodation. CV: S1 and S2 normal, regular rate and rhythm. LUNGS: Decreased breath sounds in both lung howard. ABDOMEN: Nontender and nondistended. EXTREMITIES: No clubbing. No cyanosis. Positive for some varicose veins. LABORATORY VALUES: White count is 10.9, hemoglobin 17.4, hematocrit 48.9. Chemistries: Sodium 141, BUN 16, creatinine 0.85, calcium 10.3, glucose 122. Coags are normal. Urine shows nitrate positive, also leukocyte esterase positive. MICROBIOLOGY: Pending urine culture. IMAGING STUDIES: Chest x-ray with no acute abnormalities. Multiple right-sided rib fractures. Lucent lesion in the 2nd rib, possibly post traumatic. ASSESSMENT 1. Chest pain, rule out acute coronary syndrome. 2. Hemoconcentrated. 3. Chronic obstructive pulmonary disease. 4. Hypertension. 5. History of cerebrovascular accident. 6. History of hypertension. The patient has troponin times 2 negative. Will consult cardiology. Probably a stress test as an outpatient, or it can be done here, too. Will continue her home medications. Further recommendations per clinical course. Smoking cessation advised to the patient. The patient has a history of smoking. Will restart her home medicines and also trend troponins. For further information, look in the chart. For medicines on discharge, look on the medical reconciliation sheet. Job#: [id number]
[2017-11-01 19:30] VITALS: BP 136/66
[2017-11-01] MEDS ORDERED: TRAZODONE HCL 50 MG TAB PO SCH (21:00)
[2017-11-01] MEDS: HYDROXYZINE HCL 25 MG TAB PO SCH (21:25)
[2017-11-01 23:29] VITALS: BP 136/66
[2017-11-02] VITALS: BP 122/62
[2017-11-02 04:00] VITALS: BP 118/63
[2017-11-02] MEDS: HYDROXYZINE HCL 25 MG TAB PO SCH (05:44)
[2017-11-02 05:51] LABS: CHOL/HDL RATIO 5.8 (3.0-3.6); CHOLESTEROL 156 MD/DL (0-199); CREATINE KINASE 55 IU/L (29-168); HDL CHOLESTEROL 27 MG/DL (40-60); LDL CHOLESTEROL 87 MG/DL (60-130); TRIGLYCERIDES 208 MG/DL (0-149)
[2017-11-02 07:38] VITALS: BP 120/85
[2017-11-02 08:10] VITALS: BP 120/85
[2017-11-02] MEDS ORDERED: PRAVASTATIN 20 MG TAB PO SCH (09:00)
[2017-11-02] MEDS: CEFTRIAXONE SOD 1 GM VIAL IV SCH (09:41)
[2017-11-02] MEDS: FAMOTIDINE 20 MG/2 ML VIAL IV SCH (09:41)
[2017-11-02] MEDS: ASPIRIN 81 MG ENTERIC COATED PO SCH (09:41)
[2017-11-02] MEDS ORDERED: IOPAMIDOL 370 MG/ML 200 ML INFUS..BTL INJ ONE (11:32)
[2017-11-02] MEDS ORDERED: SODIUM CHLORIDE 0.9% 50ML 50 ML ONE (11:32)
[2017-11-02 11:45] VITALS: BP 132/91
--- NOTE | 2017-11-02 12:19 | Diagnostic Imaging Report ---
PROCEDURE: CT scan of the chest WITH intravenous contrast, using pulmonary embolism protocol. TECHNIQUE: The chest was scanned utilizing a multidetector helical scanner from the lung apex through the level of the adrenal glands after the IV administration of 100 cc of Isovue 370. Coronal and sagittal multiplanar reformations were obtained. COMPARISON: None. INDICATIONS: LEFT SIDE CHEST PAIN FINDINGS: Pulmonary arteries: The main pulmonary artery measures 2.5 cm. No evidence of pulmonary embolism. Lines/tubes: None. Lungs and Airways: The central airways are patent. Biapical pleural parenchymal opacity, suggestive of prior granulomatous disease. There is a 5 mm and a 2 mm solid pulmonary nodule along the right minor fissure on series 2, images 61 and 58. Pleura: The pleural spaces are clear. Heart and mediastinum: The thyroid gland is normal. No significant mediastinal, hilar or axillary lymphadenopathy is seen. No cardiomegaly or pericardial effusion. Scattered coronary atherosclerosis. Small hiatal hernia. Soft tissues: Bilateral breast implants are noted. Abdomen: Limited contrast-enhanced views of the upper abdomen show no abnormality within the visualized liver, spleen, pancreas, or left kidney. The adrenal glands are normal. Bones: No acute bony findings. A T12 hemangioma is noted. IMPRESSION: No evidence of pulmonary embolism or other acute finding in the thorax. Scattered coronary atherosclerosis. Solid pulmonary nodules measuring up to 5 mm, which may represent non-calcified granulomas or intrapulmonary lymph nodes. In a low risk patient, no routine follow-up is recommended. If the patient has a risk factor for malignancy such as smoking, then an optional CT may be considered at 12 months. Dictated by: ROSALIO HERNANDEZ M.D. on 11/02/2017 at 9:52 Electronically approved by: ROSALIO HERNANDEZ M.D. on 11/02/2017 at 9:52
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
== END 2017-11-02 11:58 | disposition home or self-care (01) ==
LOC: ER 05:05 → ERHOLD 07:09 → IMCU 11:04
PROVIDERS: ADMIT Family Medicine; ATTEND Family Medicine
DX: R07.9 Chest pain, unspecified (principal); J44.9 Chronic obstructive pulmonary disease, unspecified; I10 Essential (primary) hypertension; Z86.73 Personal history of transient ischemic attack (TIA), and cerebral infarction without residual deficits; F17.210 Nicotine dependence, cigarettes, uncomplicated; N39.0 Urinary tract infection, site not specified; E78.5 Hyperlipidemia, unspecified; M54.9 Dorsalgia, unspecified; Z88.0 Allergy status to penicillin; Z88.2 Allergy status to sulfonamides; Z88.8 Allergy status to other drugs, medicaments and biological substances
CPT/HCPCS: 36415 ×2; 71046; 71260; 80053; 80061; 81001; 82550 ×2; 82553 ×2; 83036; 83735; 83880; 84443; 84484 ×2; 85025; 85610; 85730; 87086; 87186; 93005; 99284; G0378 ×2; J0696 ×2; J1885; Q9967; J3410

== ENCOUNTER → 2020-02-23 | Outpatient (CLI) | payer MEDICARE | LOC: CT 15:36 | PROVIDERS: ATTEND Family Medicine | DX: R06.02 Shortness of breath (principal) | CPT/HCPCS: 71250 ==

== ENCOUNTER 2021-01-11 08:27 | Emergency (ER) | payer MEDICARE, OTHER ==
[~2021-01-11] VITALS: Ht 157.5 cm; Wt 69.4 kg
[2021-01-11] MEDS ORDERED: LIDOCAINE 4% PATCH TP SCH (09:45)
== END 2021-01-11 10:50 | disposition home or self-care (01) ==
LOC: ER 08:39
DX: S30.1XXA Contusion of abdominal wall, initial encounter (principal); M25.551 Pain in right hip; W18.2XXA Fall in (into) shower or empty bathtub, initial encounter; F17.200 Nicotine dependence, unspecified, uncomplicated; Z88.0 Allergy status to penicillin; Z88.2 Allergy status to sulfonamides; Z88.8 Allergy status to other drugs, medicaments and biological substances
CPT/HCPCS: 71101; 99284

== ENCOUNTER → 2021-07-24 | Outpatient (CLI) | payer OTHER ==
[~2021-07-24] MED LIST changes: +IOPAMIDOL 370 MG/ML 100 ML INFUS..BTL INJ ONE; +METOPROLOL TARTRATE 25 MG TAB ONE; +METOPROLOL TARTRATE INJ 1 MG/ML VIAL ONE; +NITROGLYCERIN 0.4 MG SUBL ONE; +SODIUM CHLORIDE 0.9% 0 ML ONE; +SODIUM CHLORIDE 0.9% 100 ML ONE
[2021-07-24 09:12] LABS: CREATININE, SERUM 0.8 mg/dL (0.57-1.11)
== END ==
LOC: CT 08:04
PROVIDERS: ATTEND Family Medicine
DX: I20.9 Angina pectoris, unspecified (principal)
CPT/HCPCS: 36415; 75574; 82565; 84520; J7050; Q9967

== ENCOUNTER 2022-06-06 20:01 | Emergency (ER) | payer MEDICARE, OTHER ==
[~2022-06-06] VITALS: Ht 157.5 cm; Wt 55.3 kg
[~2022-06-06 20:01] MED LIST changes: -IOPAMIDOL 370 MG/ML 100 ML INFUS..BTL INJ ONE; -METOPROLOL TARTRATE 25 MG TAB ONE; -METOPROLOL TARTRATE INJ 1 MG/ML VIAL ONE; -NITROGLYCERIN 0.4 MG SUBL ONE; -SODIUM CHLORIDE 0.9% 0 ML ONE; -SODIUM CHLORIDE 0.9% 100 ML ONE
[2022-06-06] MEDS ORDERED: ONDANSETRON HCL INJ 2MG/ML 2ML 2 MG/ML VIAL IV STA (20:23)
[2022-06-06 20:31] LABS: BASOPHILS # (AUTO) 0.1 (0.0-0.1); BASOPHILS % 0.9 % (0.0-1.0); EOSINOPHILS # (AUTO) 0.1 (0.0-0.4); EOSINOPHILS % 0.9 % (0.0-6.0); HEMATOCRIT 43.3 % (34.2-44.1); HEMOGLOBIN 15.3 g/dL (12.0-16.0); LYMPHOCYTES # (AUTO) 1.8 (1.0-3.2); MEAN CORPUSCULAR HEMOGLOBIN 34.6 pg (28-32); MEAN CORPUSCULAR HGB CONC 35.3 g/dL (31-35); MONOCYTES # (AUTO) 0.4 (0.2-0.8); MONOCYTES % 5.2 % (4.4-11.3); NEUTROPHILS # (AUTO) 5.7 (2.1-6.9); NEUTROPHILS % 70.9 % (38.7-80.0); PLATELET COUNT 230 x10e3/uL (140-360); RED BLOOD COUNT 4.42 x10e6/uL (3.6-5.1)
[2022-06-06 20:51] LABS: ALBUMIN 4.4 g/dL (3.5-5.0); ALBUMIN/GLOBULIN RATIO 1.3 (0.8-2.0); ANION GAP 15.5 mmol/L (8-16); CREATININE, SERUM 0.77 mg/dL (0.57-1.11); POTASSIUM 3.5 mmol/L (3.5-5.1)
[2022-06-06] MEDS ORDERED: ONDANSETRON ODT4 MG PO (21:33)
[2022-06-06 21:49] VITALS: BP 115/94
== END 2022-06-06 21:42 | disposition home or self-care (01) ==
LOC: ER 20:05
DX: R11.0 Nausea (principal); T40.2X5A Adverse effect of other opioids, initial encounter; Y92.89 Other specified places as the place of occurrence of the external cause; J44.9 Chronic obstructive pulmonary disease, unspecified; E78.00 Pure hypercholesterolemia, unspecified; H40.9 Unspecified glaucoma
CPT/HCPCS: 36415; 80053; 83690; 84484; 85025; 93005; 99284; J2405

== ENCOUNTER → 2024-08-02 | Outpatient (REF) | payer MEDICARE ==
[~2024-08-02] MED LIST changes: +ONDANSETRON ODT4 MG PO
== END ==
LOC: CARD 09:44
PROVIDERS: ATTEND Family Medicine
DX: I73.9 Peripheral vascular disease, unspecified (principal)
CPT/HCPCS: 93925